=== PATIENT | male | born 1940 | race Caucasian/White ===

== ENCOUNTER 2022-12-05 11:19 | Inpatient (IN) | payer MEDICARE ==
[2022-12-05] VITALS (16 sets, daily range): BP systolic 98–124; BP diastolic 59–83
[~2022-12-05] VITALS: Ht 180.3 cm; Wt 106.6 kg
[2022-12-05] MEDS ORDERED: HYDROCHLOROT25 MG PO ×2 (11:30→13:52)
[2022-12-05 12:23] LABS: BASO% 0.3 % (0-3); EOS% 1.4 % (0-8); HEMATOCRIT 39.6 % (39.0-50.0); IMMATURE GRANULOCYTES 0.2 % (0.0-5.0); LYMPH% 10.8 % (15-41); MEAN CELL VOLUME 98.5 fL CALC (80.0-100.0); MEAN CORPUSCULAR HGB 32.3 pG CALC (26.0-32.0); MEAN CORPUSCULAR HGB CONC 32.8 g/dL CAL (32.0-36.0); MONO% 11.7 % (2-13); NEUT# 6.56 thou/uL (1.82-7.42); NEUT% 75.6 % (42-76); RED BLOOD COUNT 4.02 mill/uL (4.70-6.10); RED CELL DISTRI WIDTH 14.2 % (11.5-15.5)
[2022-12-05 12:36] LABS: URINE BILIRUBIN - DIPSTICK NEGATIVE (NEGATIVE); URINE BLOOD DIPSTICK NEGATIVE (NEGATIVE); URINE COLOR YELLOW; URINE GLUCOSE - DIPSTICK NEGATIVE (NEGATIVE); URINE KETONE NEGATIVE (NEGATIVE); URINE LEUK ESTERASE NEGATIVE (NEGATIVE); URINE PROTEIN - DIPSTICK NEGATIVE (NEG-TRACE)
[2022-12-05 12:37] LABS: URINE NITRITE - DIPSTICK NEGATIVE (Negative)
[2022-12-05 12:56] LABS: ALKALINE PHOSPHATASE 41 u/l (38-126); ANION GAP 12 (6-22 (CALC)); BILIRUBIN, TOTAL 1.3 mg/dL (0.2-1.3); BUN 18 mg/dL (8-23); BUN/CREATININE RATIO 20 (12-20 (CALC)); CARBON DIOXIDE 30 mmol/l (22-30); CHLORIDE 99 mmol/l (95-108); CREATININE 0.9 mg/dL (0.7-1.3); GFR FOR AFR.AMER. > 60 ML/MIN (>=60 (CALC)); GFR OTHER RACES > 60 ML/MIN (>=60 (CALC)); POTASSIUM 3.7 mmol/l (3.5-5.1); SGOT/AST 28 u/l (19-48); SODIUM 137 mmol/l (137-146); TOTAL PROTEIN 6.8 g/dL (6.3-8.2)
[2022-12-05 13:15] LABS: LIPASE 110 u/l (23-300)
[2022-12-05] MEDS ORDERED: ATORVASTATIN CA10 MG PO (13:49)
[2022-12-05] MEDS ORDERED: CYMBALTA30 MG PO (13:49)
[2022-12-05] MEDS ORDERED: FINASTERIDE5 MG PO ×2 (13:49→13:52)
[2022-12-05] MEDS ORDERED: ELIQUIS2.5 MG (13:49)
[2022-12-05] MEDS ORDERED: DOXAZOSIN1 MG PO (13:49)
[2022-12-05] MEDS ORDERED: DULOXETINE HCL60 MG (13:50)
[2022-12-05] MEDS ORDERED: ELIQUIS5 MG PO (13:51)
[2022-12-05] MEDS ORDERED: FENOFIBRATE145 MG PO (13:51)
[2022-12-05] MEDS ORDERED: DOXAZOSIN MESYLA8 MG PO (13:51)
[2022-12-05] MEDS ORDERED: ATORVASTATIN CA40 MG PO (13:51)
[2022-12-06] VITALS (9 sets, daily range): BP systolic 92–135; BP diastolic 61–88
[2022-12-06 05:04] LABS: BASO% 0.3 % (0-3); EOS% 0.1 % (0-8); HEMATOCRIT 36.4 % (39.0-50.0); HEMOGLOBIN 11.8 g/dl (14.0-18.0); IMMATURE GRANULOCYTES 0.1 % (0.0-5.0); LYMPH% 12.3 % (15-41); MEAN CELL VOLUME 100.6 fL CALC (80.0-100.0); MEAN CORPUSCULAR HGB 32.6 pG CALC (26.0-32.0); MEAN CORPUSCULAR HGB CONC 32.4 g/dL CAL (32.0-36.0); MONO% 11.8 % (2-13); NEUT# 5.03 thou/uL (1.82-7.42); NEUT% 75.4 % (42-76); RED BLOOD COUNT 3.62 mill/uL (4.70-6.10); RED CELL DISTRI WIDTH 14.5 % (11.5-15.5)
[2022-12-06 05:25] LABS: ALBUMIN 3.2 g/dL (3.2-5.0); ALKALINE PHOSPHATASE 31 u/l (38-126); ANION GAP 8 (6-22 (CALC)); BILIRUBIN, TOTAL 1.4 mg/dL (0.2-1.3); BUN 15 mg/dL (8-23); BUN/CREATININE RATIO 17 (12-20 (CALC)); CARBON DIOXIDE 29 mmol/l (22-30); CHLORIDE 102 mmol/l (95-108); CREATININE 0.9 mg/dL (0.7-1.3); GFR FOR AFR.AMER. > 60 ML/MIN (>=60 (CALC)); GFR OTHER RACES > 60 ML/MIN (>=60 (CALC)); POTASSIUM 3.8 mmol/l (3.5-5.1); SGOT/AST 23 u/l (19-48); SODIUM 135 mmol/l (137-146); TOTAL PROTEIN 5.7 g/dL (6.3-8.2)
[2022-12-07] VITALS: BP 135/88
[2022-12-07 04:00] VITALS: BP 108/76
[2022-12-07 04:12] VITALS: BP 129/86
[2022-12-07 06:27] VITALS: BP 108/76
[2022-12-07 10:24] VITALS: BP 123/72
[2022-12-07 19:03] VITALS: BP 133/72
[2022-12-08 00:57] VITALS: BP 127/85
[2022-12-08 04:26] VITALS: BP 126/93
[2022-12-08 06:26] VITALS: BP 126/95
[2022-12-08] MEDS ORDERED: AMOX/K CLAV875 M1 PO (09:26)
[2022-12-08] MEDS ORDERED: PERCOCET 5/321 COMBO PO (09:27)
== END 2022-12-08 11:18 | disposition home or self-care (01) | DRG 330 ==
LOC: ED 11:19 → ED-I 13:30 → ED 14:01 → ORM 14:02 → MS2 17:08
PROVIDERS: Nurse Practitioner; ADMIT Surgery; ATTEND Surgery
PROC: 0DTJ0ZZ Resection of Appendix, Open Approach (ICD-10-PCS; principal; 2022-12-05)
PROC: 0DTH0ZZ Resection of Cecum, Open Approach (ICD-10-PCS; 2022-12-05)
PROC: 0WJG4ZZ Inspection of Peritoneal Cavity, Percutaneous Endoscopic Approach (ICD-10-PCS; 2022-12-05)
PROC: 0T9B70Z Drainage of Bladder with Drainage Device, Via Natural or Artificial Opening (ICD-10-PCS; 2022-12-05)
DX: K35.32 Acute appendicitis with perforation, localized peritonitis, and gangrene, without abscess (principal); D68.32 Hemorrhagic disorder due to extrinsic circulating anticoagulants; K52.831 Collagenous colitis; I48.91 Unspecified atrial fibrillation; R33.8 Other retention of urine; R31.9 Hematuria, unspecified; N99.89 Other postprocedural complications and disorders of genitourinary system; J43.9 Emphysema, unspecified; T45.515A Adverse effect of anticoagulants, initial encounter; Y83.6 Removal of other organ (partial) (total) as the cause of abnormal reaction of the patient, or of later complication, without mention of misadventure at the time of the procedure; Z79.01 Long term (current) use of anticoagulants; Z95.5 Presence of coronary angioplasty implant and graft; Z20.822 Contact with and (suspected) exposure to COVID-19
CPT/HCPCS: J0131; Q9967